=== PATIENT | male | born 1960 | race Caucasian/White ===

== ENCOUNTER → 2017-10-12 | Outpatient (CLI) | payer OTHER ==
[~2017-10-12] MED LIST: DEXAMETHASONE 44 M1 PO; HYDROCODONE-APA1 TA1 PO; NOHOMEMEDICATIONS; ONDANSETRON HCL4 M2 PO; XANAX 0.5 MG0.5 MG PO
--- NOTE | ~2017-10-12 | 2DMMODE ---
[facility] [address] [place] [address] 2 D/M-MODE ECHOCARDIOGRAM Name: CIARRA VICTOR Room #: REG [facility]#: [id number] Admission: 10/12/17 Attend Phys: Beto Ramirez MD Discharge: Date of : 56 Date of Service: 10/12/17 1243 Report #: [id number] THIS REPORT FOR: //name// APPROVED REPORT Study performed: 10/12/2017 10:47:32 EXAM: Comprehensive 2D, Doppler, and color-flow Echocardiogram Patient Location: Echo lab Status: routine BSA: 1.80 HR: 71 bpm BP: 187/113 mmHg Other Information Study Quality: Adequate Technically limited study due to lung disease. Indications Chest Pain Hypertension/HDD 2D Dimensions RVDd: 42.38 mm LVEF(%): 58.75 (>50%) IVSd: 10.55 (7-11mm) LVOT Diam: 20.12 (18-24mm) LVDd: 41.06 mm PWd: 10.36 (7-11mm) Ascending Ao: 46.40 (22-36mm) LVDs: 28.44 (25-40mm) Aortic Root: 37.32 mm IVC: 12.00 mm Lynn's LVEF: 58.75 % Volumes Left Atrial Volume (Systole) Single Plane 4CH: 32.91 mL Single Plane 2CH: 53.16 mL LA ESV Index: 25.00 mL/m2 Aortic Valve AoV Peak Bryan.: 1.90 m/s AO Peak Gr.: 14.40 mmHg LVOT Max P.86 mmHg LVOT Max V: 0.85 m/s MICHEL Vmax: 1.42 cm2 Mitral Valve E/A Ratio: 1.1 [facility] [place] [address] 2 D/M-MODE ECHOCARDIOGRAM Name: CIARRA VICTOR Room #: [facility]#: [id number] Admission: 10/12/17 Attend Phys: Beto Ramirez MD Discharge: Date of : 56 Date of Service: 10/12/17 1243 Report #: [id number] MV Decel. Time: 174.38 ms MV E Max Bryan.: 0.80 m/s MV A Bryan.: 0.71 m/s MV PHT: 50.57 ms IVRT: 119.95 ms Pulmonary Valve PV Peak Bryan.: 0.83 m/s PV Peak Gr.: 2.73 mmHg Pulmonary Vein P Vein S: 0.64 m/s P Vein A: 0.44 m/s P Vein D: 0.25 m/s P Vein A Dur.: 156.9 msec P Vein S/D Ratio: 2.56 Tricuspid Valve TR Peak Bryan.: 2.26 m/s RAP Estimate: 5.00 mmHg TR Peak Gr.: 20.37 mmHg PA Pressure: 25.00 mmHg Left Ventricle The left ventricle is normal size. There is normal left ventricular wall thickness. The left ventricular systolic function is normal. The left ventricular ejection fraction is within the normal range. LVEF is 60-65%. Left ventricular filling pattern is normal for age. Right Ventricle Right ventricle is borderline dilated. The right ventricular systolic function is normal. Atria The left atrium size is normal. The right atrium size is normal. Aortic Valve Mild aortic valve sclerosis. No aortic regurgitation is present. There is no aortic valvular stenosis. Mitral Valve The mitral valve is normal in structure. Trace mitral regurgitation. No evidence of mitral valve stenosis. Tricuspid Valve The tricuspid valve is normal in structure. Trace tricuspid regurgitation. PAP is estimated at 25 mmHg. Pulmonic Valve [address] [address] 2 D/M-MODE ECHOCARDIOGRAM Name: CIARRA VICTOR Room #: REG [facility]#: [id number] Admission: 10/12/17 Attend Phys: Beto Ramirez MD Discharge: Date of : 56 Date of Service: 10/12/17 1243 Report #: [id number] Pulmonic valve is not well visualized. Great Vessels Aortic root is normal in size. The ascending aorta is moderately dilated at 4.6 cm. IVC is normal in size and collapses >50% with inspiration. Pericardium There is no pericardial effusion. <Conclusion> The left ventricle is normal size. There is normal left ventricular wall thickness. The left ventricular systolic function is normal. Right ventricle is borderline dilated. The right ventricular systolic function is normal. The left atrium size is normal. Mild aortic valve sclerosis. No aortic regurgitation is present. There is no aortic valvular stenosis. Trace mitral regurgitation. The ascending aorta is moderately dilated at 4.6 cm. <ELECTRONICALLY SIGNED> By: Beto Ramirez MD 10/12/17 1243 1243 1243 Beto Ramirez MD /INF
== END ==
LOC: CV 09:08
DX: I35.8 Other nonrheumatic aortic valve disorders (principal); I77.819 Aortic ectasia, unspecified site; I38 Endocarditis, valve unspecified

== ENCOUNTER → 2017-10-19 | Outpatient (CLI) | payer OTHER ==
[~2017-10-19] VITALS: Ht 182.9 cm; Wt 61.2 kg
[~2017-10-19] MED LIST changes: +COZAAR 50 MG TA50 M2 PO; +IBUPROFEN 400400 M2 PO; +SYNTHROID50 MCG PO; +SYNTHROID75 MCG PO
--- NOTE | ~2017-10-19 | CATHLAB ---
[facility] [place] [address] INVASIVE PROCEDURE REPORT Name: CIARRA VICTOR Room #: [id number] Admission: 10/19/17 Attend Phys: Beto Ramirez MD Discharge: Date of : 56 Date of Service: 10/19/17 1121 Report #: [id number] THIS REPORT FOR: //name// APPROVED REPORT Study performed: 10/19/2017 09:01:08 Patient Details Patient Status: Out-Patient Room #: The patient is a 56 year-old male Event Personnel Beto Ramirez Tent Finisher, Elsy Greer RTR, FIELD ARTILLERY OPERATIONS SPECIALIST Monitor, Godwin Hernandez RN, Michael Wolf Scrub Procedures Performed Art Access - R femoral artery* Left Heart Cath w/or w/o Coronaries [id number] [facility] Ascending Aortography 06779 Initial Mod Sed Same Phys/QHP Gr5y [id number] Hemostasis with Manual pressure Indication Pre-op clearance, The patient has an ascending aortic aneurysm and presents for a preop coronary angiogram. Risk Factors Hypercholesterolemia Procedure Narrative The Right Groin^ was infiltrated with 1% Lidocaine subcutaneous anesthesia. A PINNACLE 4FR Sheath #[id number] sheath was inserted into the RFA^. Coronary angiography was performed using coronary diagnostic catheters. The right coronary system was accessed and visualized with a 4Fr. JR4 catheter. The left coronary system was accessed and visualized with a 4FR JL6 #[id number] catheter. The left ventricle was accessed and visualized with a 4Fr. Pigtail catheter. Left ventricular/Aortic Valve gradient assessed via catheter pullback. Left ventriculogram was performed in 30 degree projection. An aortogram of the ascending aorta was performed. Intraoperative Conscious Sedation Sedation start time: 09:04 Case end Time: 09:21 Fentanyl 50 mcg Versed 1.5 mg [facility] [place] [address] INVASIVE PROCEDURE REPORT Name: CIARRA VICTOR Room #: REG [facility]#: [id number] Admission: 10/19/17 Attend Phys: Beto Ramirez MD Discharge: Date of : 56 Date of Service: 10/19/17 1121 Report #: [id number] Fluoro Time: 4.49 minutes Dose: DAP 2687.90 cGycm2 156.2 mGy Contrast Type and Amount: Omnipaque 135 ml Coronary Angiography The patient's coronary anatomy is co- dominant. Diagnostic Cath Left Main Large-caliber vessel, with no flow-limiting lesions. LAD Moderate size caliber vessel, traveling down the anterior wall and wrapping around the apex. There are no flow-limiting lesions. Diagonal 1 Moderate size caliber vessel, with no flow-limiting lesions. Diagonal 2 Patent vessel, with no flow-limiting lesions. Circumflex Codominant vessel with no flow-limiting lesions. OM1 Patent vessel, with no flow-limiting lesions. OM2 Patent vessel, with no flow-limiting lesions. Right Coronary Patent vessel, with no flow-limiting lesions. Left Ventriculography The left ventricle is normal in size with normal contractility. The left ventricular ejection fraction is estimated to be 60%. An aortogram was performed revealing a dilated ascending aorta, no evidence for aortic insufficiency. Hemodynamics The aortic pressure is 141/76 mmHg with a mean of 106 mmHg. The left ventricular pressure is 141/4 mmHg with a mean of mmHg. The left ventricular end diastolic pressure is 15 mmHg. Conclusion 1. Ascending aortic aneurysm. 2. Angiographically normal coronary arteries. 3. Codominant system. 4. Normal LV systolic function. 5. Recommend surgical consultation. <ELECTRONICALLY SIGNED> By: Beto Ramirez MD 10/19/17 112 20 20 Beto Ramirez MD /INF
[2017-10-19 07:09] VITALS: BP 167/102
[2017-10-19 07:28] LABS: HEMATOCRIT 42.5 % (42.0-52.0); HEMOGLOBIN 14.7 gm/dL (14.0-18.0); MCHC 34.6 g/dL (28.0-37.0); RBC 4.21 mil/uL (4.50-6.00); RDW 13.1 % (10.5-14.5); WBC 6.3 thou/uL (4.0-11.0)
[2017-10-19 07:43] LABS: CALCIUM 9.1 mg/dL (8.5-10.1); CREATININE 0.9 mg/dL (0.7-1.3); POTASSIUM 4.1 mmol/L (3.5-5.1)
== END | disposition home or self-care (01) ==
LOC: CATH 06:32
PROVIDERS: Internal Medicine Cardiovascular Disease
DX: I72.8 Aneurysm of other specified arteries (principal); E78.00 Pure hypercholesterolemia, unspecified; E03.9 Hypothyroidism, unspecified; F17.210 Nicotine dependence, cigarettes, uncomplicated; Z82.49 Family history of ischemic heart disease and other diseases of the circulatory system; Z98.890 Other specified postprocedural states; Z88.0 Allergy status to penicillin; Z79.899 Other long term (current) drug therapy

== ENCOUNTER → 2017-10-24 | Outpatient (CLI) | payer OTHER | LOC: ULTRA 05:58 | DX: Z01.818 Encounter for other preprocedural examination (principal) ==

== ENCOUNTER 2017-10-31 05:29 | Inpatient (IN) | payer OTHER ==
[2017-10-24 11:21] LABS: ABSOLUTE NEUTROPHILS 3.8 thou/uL (1.4-8.2); BASOPHILS 0.9 % (0.0-2.0); EOSINOPHILS 4.2 % (0.0-3.0); HEMATOCRIT 44.3 % (42.0-52.0); HEMOGLOBIN 15.4 gm/dL (14.0-18.0); MCH 35.4 pg (26.0-34.0); MCHC 34.9 g/dL (28.0-37.0); MCV 101.5 fL (80.0-100.0); MONOCYTES 10.2 % (1.0-8.0); PLATELET COUNT 184 thou/uL (150-400); POLYS 69.7 % (36.0-66.0); RBC 4.36 mil/uL (4.50-6.00); RDW 13.3 % (10.5-14.5); WBC 5.5 thou/uL (4.0-11.0)
[2017-10-24 11:34] LABS: APTT 26.8 Seconds (24.5-32.8); CALCIUM 9.6 mg/dL (8.5-10.1); CREATININE 0.9 mg/dL (0.7-1.3); POTASSIUM 4.7 mmol/L (3.5-5.1); PROTIME 9.7 Seconds (9.3-11.4); TOTAL BILIRUBIN 0.6 mg/dL (<0.1-1.0); TOTAL PROTEIN 8.4 g/dL (6.4-8.2)
[2017-10-24 12:02] LABS: URINE BILIRUBIN NEGATIVE (Negative); URINE BLOOD NEGATIVE (Negative); URINE CLARITY CLEAR; URINE COLOR YELLOW; URINE GLUCOSE-RANDOM* NEGATIVE (Negative); URINE KETONES NEGATIVE (Negative); URINE LEUKOCYTES-REFLEX NEGATIVE (Negative); URINE NITRITE-REFLEX NEGATIVE (Negative); URINE PROTEIN (DIPSTICK) NEGATIVE (Negative); URINE SPECIFIC GRAVITY <= 1.005 (1.005-1.035); URINE UROBILINOGEN 0.2 E.U./dl (0.2-1.0)
[~2017-10-31] VITALS: Ht 182.9 cm; Wt 63.5 kg
[2017-10-31] VITALS (13 sets, daily range): BP systolic 88–149; BP diastolic 61–98
--- NOTE | ~2017-10-31 | O ---
[facility] [place] [address] OPERATIVE REPORT Name: CIARRA VICTOR Room #: 241-P ADM IN M.R.#: [id number] Admission: 10/31/17 Attend Phys: Domingo Garcia MD Discharge: Date of : 56 Report #: [id number] THIS REPORT FOR: //name// CC: [facility] physician/PCP Domingo Garcia DATE OF SERVICE: 10/31/2017 PREOPERATIVE DIAGNOSIS: Ascending aortic aneurysm, unruptured, 5.4 cm in size. FINAL DIAGNOSIS: Ascending aortic aneurysm, unruptured, 5.4 cm in size. OPERATIVE PROCEDURE PERFORMED: 1. Repair of ascending aortic aneurysm with 30 mm woven Dacron interposition graft. 2. Right femoral artery exploration. SURGEON: Domingo Garcia MD. ACCOUNT SUPPORT REP: JOSE RAFAEL Jacob. ANESTHESIA: General. OPERATIVE INDICATIONS: The patient is a 56-year-old male who was referred patient to radiation oncologist. The patient has undergone treatment for head and neck cancer and was evaluated with CT imaging, found to have an ascending aneurysm involving the aorta from the sinotubular junction up to the takeoff of the innominate artery. Evaluation included echocardiography showing normal LV function with no evidence of aortic insufficiency and left heart catheterization showed normal coronary arteries. The patient is admitted at this time now for elective ascending aortic aneurysm repair. OPERATIVE SUMMARY: The patient was brought in the operating room, placed on the OR table in supine position. After anesthesia was induced via the general endotracheal route, monitoring lines have been positioned. The patient was prepped and draped in sterile fashion with chlorhexidine. A median sternotomy incision was made. We opened the pericardium. Pericardial well was created. We mobilized the ascending aorta and examined it carefully. We found distal tapering near the innominate artery. We also found a tapering down into the aortic root. I felt that there was not enough room cannulation in the arch and therefore, an oblique incision was made in the right groin. Dissection was carried down to explore the contents of the femoral sheath. The common femoral artery was dissected free from surrounding tissue. We divided the lines to the cardiopulmonary bypass pump. We clamped the common femoral artery both proximally and distally. A transverse femoral arteriotomy was made and was extended laterally in each way. A 24-Korean aortic cannula was positioned in [address] [address] OPERATIVE REPORT Name: CIARRA VICTOR Room #: 241-P [facility] IN [facility]#: [id number] Admission: 10/31/17 Attend Phys: Domingo Garcia MD Discharge: Date of : 56 Report #: [id number] the femoral artery. We then placed a venous cannula in the right atrium. An antegrade cardioplegic cannula was positioned in the ascending aorta and cardiopulmonary bypass was begun. A retrograde cardioplegic cannula was positioned and under low flow conditions, the aorta was cross clamped. The heart was arrested with a cold antegrade cardioplegia approximately 1 liter followed by 500 mL cold retrograde cardioplegia. This was augmented with topical ice slush. Diastolic arrest was achieved and maintained throughout this operation with intermittent doses of cold retrograde cardioplegia as well as topical ice slush. We first incised the ascending aorta laterally. We extended up towards the aortic crossclamp and amputated the ascending aorta about 1 cm below the clamp. We then also amputated the aorta right at the level of the sinotubular junction, taking care not to injure the left main coronary or the right main coronary ostia. The aortic sizes were measured and a 30 mm Dacron tube graft was selected. It was bevelled. A distal anastomosis was carried out with a 4-0 Prolene in 2 layers. Once completed, BioGlue was placed around this anastomosis. The graft was then measured to the appropriate length and cut and a proximal anastomosis was fashioned to the ascending aorta again in 2 layers with 4-0 Prolene suture. Once completed, the patient was placed in steep Trendelenburg position. Warm cardioplegia was given both retrograde and antegrade and de-airing was performed through the left ventricular apex with an 18-gauge needle while holding blood in the heart and ventilating the lungs during this maneuver. The retrograde cannula was then removed. An antegrade cardioplegic cannula was given and similar de-airing maneuvers were performed. Lastly under low flow conditions, the aorta crossclamp was released to begin the period of reperfusion. Similar de-airing maneuvers were performed again through the left ventricular apex with an 18-gauge needle. De-airing of the aorta and the innominate artery also were performed with a 22-gauge needle. The patient was then placed back in the supine position. Atrial and ventricular pacing wires were placed. The patient did require defibrillation but returned to normal sinus rhythm thereafter. Three successive doses of calcium and a single dose of magnesium were given over 3-5 minute intervals. After a suitable period of reperfusion, the lungs were reinflated. The patient was weaned from cardiopulmonary bypass without inotropic support. Protamine was given to reverse the heparin, decannulation was effected. Once satisfactory hemostasis was achieved, we placed two 32-Korean chest tubes to the anterior mediastinum. No Tre drain was used. They were brought out through separate stab incisions. The sternum was closed with #7 wire. The fascia, subcutaneous and skin were closed in multiple layers with absorbable suture. The procedure completed, the patient was taken to the ICU in stable condition. Cardiopulmonary bypass time 84 minutes. [facility] [address] [place] [address] OPERATIVE REPORT Name: CIARRA VICTOR Room #: 241-P [facility] IN .R.#: [id number] Admission: 10/31/17 Attend Phys: Domingo Garcia MD Discharge: Date of : 56 Report #: [id number] CROSS CLAMP TIME: 61 minutes. By: 1408 [id number] /nt
--- NOTE | ~2017-10-31 | EKG ---
[address] [address] ELECTROCARDIOGRAM REPORT Name: CIARRA VICTOR Room #: 241-P ADM IN M.R.#: [id number] Admission: 10/31/17 Attend Phys: Domingo Garcia MD Discharge: Date of : 56 Report #: [id number] THIS REPORT FOR: //name// [facility] Test Date: 2017-10-31 Test Time: 15:59:42 Pat Name: CIARRA VICTOR Department: Room: 241 P Gender: M Engineering Professor: jlxiomara : 1960 Requested By: Diana Hale Order Number: [id number] MD: Derrick Rangel Measurements Intervals [place] Rate: 88 P: 76 PA: 153 QRS: 57 QRSD: 86 T: 71 QT: 400 QTc: 484 Interpretive Statements Sinus rhythm Minimal ST elevation, anterior leads Borderline prolonged QT interval Compared to ECG 10/31/2017 06:21:49 ST (T wave) deviation now present Electronically Signed On 10-31-2017 17:11:56 CDT by Derrick Rangel [email or web address] <ELECTRONICALLY SIGNED> By: Derrick Rangel MD, [facility] 10/31/17 1711 1559 1559 Derrick Rangel MD, [facility] /EPI
--- NOTE | ~2017-10-31 | EKG ---
[address] [place] [address] ELECTROCARDIOGRAM REPORT Name: CIARRA VICTOR Room #: 241-P ADM IN M.R.#: [id number] Admission: 10/31/17 Attend Phys: Domingo Garcia MD Discharge: Date of : 56 Report #: [id number] THIS REPORT FOR: //name// [facility] Test Date: 2017-11-01 Test Time: 06:48:20 Pat Name: CIARRA VICTOR Department: Room: 241 P Gender: M Registered Dental Assistant: CHAD : 1960 Requested By: Diana Hale Order Number: [id number] MD: Derrick Rangel Measurements Intervals [place] Rate: 91 P: 30 AL: 160 QRS: 8 QRSD: 76 T: 33 QT: 374 QTc: 461 Interpretive Statements Sinus rhythm ST elevation suggests acute pericarditis Baseline wander in lead(s) V5 Compared to ECG 10/31/2017 15:59:42 No significant changes Electronically Signed On 11-01-2017 8:14:43 CDT by Derrick Rangel [email or web address] <ELECTRONICALLY SIGNED> By: Derrick Rangel MD, [facility] 11/01/17 0814 0648 0648 Derrick Rangel MD, [facility] /EPI
--- NOTE | ~2017-10-31 | EKG ---
[address] [address] ELECTROCARDIOGRAM REPORT Name: CIARRA VICTOR Room #: 150-1 ADM IN M.R.#: [id number] Admission: 10/31/17 Attend Phys: Domingo Garcia MD Discharge: Date of : 56 Report #: [id number] THIS REPORT FOR: //name// [facility] Test Date: 2017-10-31 Test Time: 06:21:49 Pat Name: CIARRA VICTOR Department: Room: Gender: M Cv Tech: VELIA : 1960 Requested By: Domingo Garcia Order Number: [id number] MD: Derrick Rangel Measurements Intervals [place] Rate: 82 P: 53 [place]: 154 QRS: -17 QRSD: 94 T: 18 QT: 391 QTc: 457 Interpretive Statements Sinus rhythm Consider left ventricular hypertrophy No previous ECG available for comparison Electronically Signed On 10-31-2017 9:13:45 CDT by Derrick Rangel [email or web address] <ELECTRONICALLY SIGNED> By: Derrick Rangel MD, [facility] 10/31/17 0913 0621 0 Derrick Rangel MD, [facility] /EPI
[2017-10-31 12:21] LABS: HEMATOCRIT 27.5 % (42.0-52.0); MCH 35.5 pg (26.0-34.0); MCHC 34.6 g/dL (28.0-37.0); MCV 102.5 fL (80.0-100.0); RBC 2.68 mil/uL (4.50-6.00); RDW 12.6 % (10.5-14.5); WBC 8.1 thou/uL (4.0-11.0)
[2017-10-31 12:25] LABS: HEMOGLOBIN 9.5 gm/dL (14.0-18.0)
[2017-10-31 12:37] LABS: APTT 28.9 Seconds (24.5-32.8); PROTIME 12.7 Seconds (9.3-11.4)
[2017-10-31 12:39] LABS: FIBRINOGEN 126.6 mg/dL (210-360); INR 1.2
[2017-10-31 13:17] LABS: POC BE 0 mmol/L (-2.0 to +3.0); POC CA IONIZED 4.2 mg/dL (4.5-5.3); POC GLUCOSE 132 mg/dL (70-99); POC HCO3 24.1 mmol/L (22.0-26.0); POC HEMOGLOBIN 9.5 g/dL (14.0-18.0); POC POTASSIUM 4.8 mmol/L (3.5-5.1); POC SODIUM 137 mmol/L (136-145); POC pCO2 38.1 mmHg (35.0-45.0)
[2017-10-31 13:17] LABS: POC BE -6 mmol/L (-2.0 to +3.0); POC CA IONIZED 4.1 mg/dL (4.5-5.3); POC GLUCOSE 129 mg/dL (70-99); POC HEMOGLOBIN 10.9 g/dL (14.0-18.0); POC POTASSIUM 3.8 mmol/L (3.5-5.1); POC SODIUM 136 mmol/L (136-145)
[2017-10-31 13:17] LABS: POC BE 2 mmol/L (-2.0 to +3.0); POC CA IONIZED 4.6 mg/dL (4.5-5.3); POC GLUCOSE 118 mg/dL (70-99); POC HCO3 26.7 mmol/L (22.0-26.0); POC HEMOGLOBIN 13.3 g/dL (14.0-18.0); POC POTASSIUM 4.3 mmol/L (3.5-5.1); POC SODIUM 136 mmol/L (136-145); POC pCO2 43.1 mmHg (35.0-45.0)
[2017-10-31 13:17] LABS: POC BE 1 mmol/L (-2.0 to +3.0); POC CA IONIZED 7.2 mg/dL (4.5-5.3); POC GLUCOSE 129 mg/dL (70-99); POC HCO3 25.8 mmol/L (22.0-26.0); POC HEMOGLOBIN 8.8 g/dL (14.0-18.0); POC POTASSIUM 4.6 mmol/L (3.5-5.1); POC SODIUM 134 mmol/L (136-145); POC pH 7.429 (7.360-7.450)
[2017-10-31 13:17] LABS: POC BE -1 mmol/L (-2.0 to +3.0); POC CA IONIZED 4.1 mg/dL (4.5-5.3); POC GLUCOSE 123 mg/dL (70-99); POC HCO3 24.6 mmol/L (22.0-26.0); POC HEMOGLOBIN 8.5 g/dL (14.0-18.0); POC POTASSIUM 5.3 mmol/L (3.5-5.1); POC SODIUM 132 mmol/L (136-145); POC pCO2 42.6 mmHg (35.0-45.0)
[2017-10-31 13:17] LABS: POC BE 0 mmol/L (-2.0 to +3.0); POC CA IONIZED 4.4 mg/dL (4.5-5.3); POC GLUCOSE 132 mg/dL (70-99); POC HCO3 25.1 mmol/L (22.0-26.0); POC HEMOGLOBIN 12.6 g/dL (14.0-18.0); POC POTASSIUM 3.9 mmol/L (3.5-5.1); POC SODIUM 137 mmol/L (136-145); POC pCO2 40.4 mmHg (35.0-45.0); POC pH 7.401 (7.360-7.450)
[2017-10-31 14:04] LABS: HEMATOCRIT 32.7 % (42.0-52.0); HEMOGLOBIN 11.3 gm/dL (14.0-18.0); MCH 35.5 pg (26.0-34.0); MCHC 34.6 g/dL (28.0-37.0); MCV 102.4 fL (80.0-100.0); RBC 3.2 mil/uL (4.50-6.00); RDW 12.9 % (10.5-14.5); WBC 9.5 thou/uL (4.0-11.0)
[2017-10-31 14:12] LABS: CALCIUM 10.3 mg/dL (8.5-10.1); CREATININE 0.8 mg/dL (0.7-1.3); MAGNESIUM 2.3 mg/dL (1.8-2.4); POTASSIUM 4.2 mmol/L (3.5-5.1)
[2017-10-31 14:19] LABS: BE(vivo) -6.7 mmol/L (-2 to +3); HCO3 19.1 mmol/L (22.0-26.0); PO2 185.5 mmHg (80.0-100.0); sO2 99.2 % (92.0-98.0)
[2017-10-31 14:21] LABS: pH 7.307 (7.360-7.450)
[2017-10-31 14:21] LABS: APTT 33.6 Seconds (24.5-32.8); INR 1.1; PROTIME 11.5 Seconds (9.3-11.4)
[2017-10-31 16:31] LABS: BE(vivo) -6.1 mmol/L (-2 to +3); HCO3 20.8 mmol/L (22.0-26.0); PCO2 46.8 mmHg (35.0-45.0); PO2 149.8 mmHg (80.0-100.0); sO2 98.6 % (92.0-98.0)
[2017-10-31 16:32] LABS: pH 7.266 (7.360-7.450)
[2017-10-31 19:30] LABS: BE(vivo) -1.7 mmol/L (-2 to +3); HCO3 22.8 mmol/L (22.0-26.0); PCO2 37.7 mmHg (35.0-45.0); PO2 191.9 mmHg (80.0-100.0); pH 7.399 (7.360-7.450); sO2 99.3 % (92.0-98.0)
[2017-11-01] VITALS (21 sets, daily range): BP systolic 86–115; BP diastolic 61–79
[2017-11-01 05:31] LABS: HEMATOCRIT 29.2 % (42.0-52.0); HEMOGLOBIN 10.2 gm/dL (14.0-18.0); MCH 35.3 pg (26.0-34.0); MCHC 34.8 g/dL (28.0-37.0); MCV 101.5 fL (80.0-100.0); RBC 2.88 mil/uL (4.50-6.00); RDW 12.9 % (10.5-14.5); WBC 11.2 thou/uL (4.0-11.0)
[2017-11-01 06:03] LABS: MAGNESIUM 1.7 mg/dL (1.8-2.4); POTASSIUM 4.1 mmol/L (3.5-5.1)
[2017-11-02] VITALS (14 sets, daily range): BP systolic 112–135; BP diastolic 73–87
[2017-11-02 05:29] LABS: HEMATOCRIT 27.1 % (42.0-52.0); HEMOGLOBIN 9.4 gm/dL (14.0-18.0)
[2017-11-02 05:39] LABS: CALCIUM 8.5 mg/dL (8.5-10.1); CREATININE 1.1 mg/dL (0.7-1.3); MAGNESIUM 1.7 mg/dL (1.8-2.4); POTASSIUM 4.3 mmol/L (3.5-5.1)
[2017-11-03 04:46] VITALS: BP 127/86
[2017-11-03 08:00] VITALS: BP 125/83
[2017-11-03] MEDS ORDERED: LOPRESSOR25 PO (08:38)
[2017-11-03] MEDS ORDERED: ASPIRIN EC325 M1 PO (08:39)
[2017-11-03] MEDS ORDERED: NORCO 5-325 TA1 EACH PO (08:40)
[2017-11-03 10:20] VITALS: BP 125/83
== END 2017-11-03 10:58 | disposition home or self-care (01) | DRG 269 ==
LOC: PRE 05:29 → TBA 08:28 → ICU 08:28 → PRE 13:14 → ICU 13:32 → PRE 15:20 → 2N 11-02 14:12 → ENTRNSPT 11-03 10:46 → EDTRNSPTSTS 11-03 10:51 → 2N 11-03 10:58
PROVIDERS: Nurse Practitioner; Thoracic Surgery (Cardiothoracic Vascular Surgery)
PROC: 04JY0ZZ Inspection of Lower Artery, Open Approach (ICD-10-PCS; principal; 2017-10-31)
PROC: 04R00JZ Replacement of Abdominal Aorta with Synthetic Substitute, Open Approach (ICD-10-PCS; principal; 2017-10-31)
DX: I71.4 Abdominal aortic aneurysm, without rupture (principal); D62 Acute posthemorrhagic anemia; E83.42 Hypomagnesemia; I49.3 Ventricular premature depolarization; I10 Essential (primary) hypertension; F41.9 Anxiety disorder, unspecified; Z79.899 Other long term (current) drug therapy; Z79.82 Long term (current) use of aspirin; Z88.0 Allergy status to penicillin
CPT/HCPCS: 10078; 10081; 47000; 47001; 47002; 50010; 50167; 51089; 51965; 62110; 62900; 62950; 64029; 65002; 65003; 65020; 65043; 65047; 65090; 65120; 83006